=== PATIENT | female | born 1990 | race Caucasian/White ===

== ENCOUNTER 2017-05-11 12:26 | Observation (INO) ==
[2017-05-11 13:49] LABS: Amphetamine Screen,Urine Negative ng/mL (Cutoff=1000); Barbiturate Screen,Urine Negative ng/mL (Cutoff=200); Benzodiazepines Screen,Urine Negative ng/mL (Cutoff=200); Cannabinoid Screen,Urine Positive ng/mL (Cutoff = 50); Cocaine Screen,Urine Negative ng/mL (Cutoff= 300); Opiate Screen,Urine Negative ng/mL (Cutoff=300); Phencyclidine Screen,Urine Negative ng/mL (Cutoff=25)
[2017-05-11 13:51] LABS: Basophils % 0.4 %; Eosinophils # 0.1 K/mcL (0.0-0.6); Eosinophils % 0.7 %; Hematocrit 33.4 % (35.3-44.9); Hemoglobin 11.1 g/dL (11.5-15.4); Immature Granulocytes % 1.8 % (0-4); Lymphocytes # 1.6 K/mcL (0.6-4.6); Lymphocytes % 16.4 %; Mean Corpuscular HGB Conc 33.2 g/dL (31.6-35.5); Mean Corpuscular Hemoglobin 31.7 pg (28.0-33.3); Mean Corpuscular Volume 95.4 fL (83.0-100.0); Mean Platelet Volume 11.2 fL (9.4-12.4); Monocytes # 0.8 K/mcL (0.0-1.3); Neutrophils # 7.1 K/mcL (1.6-8.9); Platelet Count 135 K/mcL (140-400); Red Cell Distribution Width 13.3 % (11.5-14.5); Segmented Neutrophils % 72.7 %
[2017-05-11 14:01] LABS: Bilirubin,Urine Negative (Negative); Blood,Urine Negative (Negative); Clarity,Urine Cloudy (Clear); Color,Urine Yellow (Yellow); Glucose,Urine (UA) Normal (Normal); Ketones,Urine Negative (Negative); Leukocyte Esterase,Urine Large (Negative); Nitrite,Urine Negative (Negative); Protein,Urine Negative (Neg-Trace); Specific Gravity,Urine > 1.030 (1.010-1.025); Urobilinogen,Urine Normal (Normal)
[2017-05-11 14:05] LABS: Alanine Aminotransferase 10 Units/L (7-52); Aspartate Amino Transferase 16 Units/L (13-39); BUN/Creatinine Ratio 10 (6-26); Blood Urea Nitrogen 5 mg/dL (6-20); Lactate Dehydrogenase 112 Units/L (140-271); Uric Acid 4.4 mg/dL (2.3-7.6); eGFR For African Americans > 60 (> 60); eGFR For Non-African Americans > 60 (> 60)
[2017-05-11 14:11] LABS: Squamous Epithelial Cell,Urine Many per lpf (None-Few)
[2017-05-11 14:12] LABS: Bacteria,Urine Moderate per hpf (None-Few); WBC,Urine 15-30 per hpf (0-3)
[2017-05-11 14:41] LABS: Protein/Creatinine Ratio,Urine 0.19 mg/mg (0.00-0.20)
[2017-05-11] MEDS ORDERED: Acetaminophen/Butalbital/CaffeineTABLET PO PRN (15:07)
--- NOTE | 2017-05-11 15:12 | OB/GYN Progress Note ---
Date of Encounter: 05/11/17 Time of Encounter: 15:08 - Assessment and Plan (1) 35 weeks gestation of Current Visit: Yes Status: Acute (2) Headache Current Visit: Yes Status: Acute Will try Fioricet. Pt instructed to return to ED for further evaluation if headache does not improve. PIH labs and BP's WNL. Qualifiers: Headache type: unspecified Headache chronicity pattern: acute headache Intractability: intractable Qualified Code(s): R51 - Headache (3) Decreased movement Current Visit: Yes Status: Acute NST non-reactive. Discharge pt to OBGYN office for BPP. Qualifiers: Fetus number: single or unspecified fetus Trimester: third trimester Qualified Code(s): O36.8130 - Decreased movements, third trimester, not applicable or unspecified Subjective - Subjective Interval history: 27 year-old presenting at 35w4d with c/o headache x 5 days and decreased movement. She denies LOF or VB. She does report some blurry vision in her left eye with headache on that side behind her eye. She denies ever having a headache like this one. No hx migraines. No epigastric pain or edema. Antepartum ROS: no loss of fluid, no vaginal bleeding, no movement normal , no contractions Objective - Vital Signs Vital Signs: Intake and Output 05/10/17 05/11/17 05/11/17 23:59 07:59 15:59 Other: Weight 69.1 kg Patient Weight 05/11/17 23:59 Weight 69.1 kg - Exam FHR: category 1 FHR comments: NST non-reactive with periods of minimal variability Auscultation: bilateral: normal Abdomen: Present: soft, gravid. Absent: tenderness Uterus: Absent: tenderness Comments: Pupils equal and reactive. Strength equal bilateral upper and lower extremeties. reflexes normal no clonus - Labs Labs: Abnormal lab results RBC 3.50 M/mcL (3.82-4.97) L 05/11/17 13:20 Hgb 11.1 g/dL (11.5-15.4) L 05/11/17 13:20 Hct 33.4 % (35.3-44.9) L 05/11/17 13:20 Plt Count 135 K/mcL (140-400) L 03/05/18 13:20 BUN 5 mg/dL (6-20) L 05/11/17 13:20 Creatinine 0.48 mg/dL (0.60-1.20) L 05/11/17 13:20 Lactate Dehydrogenase 112 Units/L (140-271) L 05/11/17 13:20 Urine Clarity Cloudy (Clear) A 05/11/17 13:20 Ur Specific [place] > 1.030 (1.010-1.025) H 05/11/17 13:20 Ur Leukocyte Esterase Large (Negative) H 05/11/17 13:20 Urine Microscopic WBC 15-30 per hpf (0-3) H 05/11/17 13:20 Ur Squamous Epith Cells Many per lpf (None-Few) H 05/11/17 13:20 Urine Bacteria Moderate per hpf (None-Few) H 05/11/17 13:20 U Marijuana (THC) Screen Positive ng/mL (Cutoff = 50) H 05/11/17 13:20
== END 2017-05-11 15:34 | disposition home or self-care (01) ==
LOC: 1NENULAB
PROVIDERS: ADMIT Obstetrics & Gynecology; ATTEND Obstetrics & Gynecology

== ENCOUNTER 2017-06-04 10:19 | Inpatient (IN) ==
[2017-06-04] MEDS ORDERED: Famotidine 20 MG/2 ML VIAL IVP ONE (11:40)
[2017-06-04] MEDS ORDERED: CeFAZolin Premix DUPLEX 2,000 MG/50 ML BAG IVPB ONE (11:40)
[2017-06-04] MEDS ORDERED: Ringers Solution, Lactated 1,000 ML IVC ONE (11:40)
[2017-06-04] MEDS ORDERED: Metoclopramide 10 MG/2 ML VIAL IVP ONE (11:40)
[2017-06-04] MEDS ORDERED: Oxytocin 20 units/ LR 1000 mL 20 UNIT/1,000 ML BAG IVC ONE ×2 (11:40→19:49)
[2017-06-04] MEDS ORDERED: Ringers Solution, Lactated 1,000 ML IVC SCH ×2 (11:45→16:00)
[2017-06-04 12:03] LABS: Basophils % 0.3 %; Eosinophils # 0.1 K/mcL (0.0-0.6); Eosinophils % 0.8 %; Hemoglobin 12.5 g/dL (11.5-15.4); Immature Granulocytes % 1.5 % (0-4); Lymphocytes # 1.7 K/mcL (0.6-4.6); Lymphocytes % 16.6 %; Mean Corpuscular HGB Conc 33.8 g/dL (31.6-35.5); Mean Corpuscular Volume 94.6 fL (83.0-100.0); Mean Platelet Volume 10.9 fL (9.4-12.4); Monocytes # 0.8 K/mcL (0.0-1.3); Monocytes % 8.1 %; Neutrophils # 7.5 K/mcL (1.6-8.9); Platelet Count 162 K/mcL (140-400); Red Blood Count 3.91 M/mcL (3.82-4.97); Red Cell Distribution Width 13.6 % (11.5-14.5); Segmented Neutrophils % 72.7 %
[2017-06-04 12:42] LABS: Amphetamine Screen,Urine Negative ng/mL (Cutoff=1000); Barbiturate Screen,Urine Negative ng/mL (Cutoff=200); Benzodiazepines Screen,Urine Negative ng/mL (Cutoff=200); Cannabinoid Screen,Urine Negative ng/mL (Cutoff = 50); Cocaine Screen,Urine Negative ng/mL (Cutoff= 300); Opiate Screen,Urine Negative ng/mL (Cutoff=300); Phencyclidine Screen,Urine Negative ng/mL (Cutoff=25)
--- NOTE | 2017-06-04 13:01 | Anesthesia Evaluation PreOp ---
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 History: Seizures (last episode 1 year ago, not being medically treated, associated with flashing {strobe} lights) Other Medical History: Denies Any Significant HX Anesthesia History: No Prior Anesthetic Complications, Past Anesthesia : Yes (IUP 39 weeks, ) Alcohol Use: none Drug use: none Medications and Allergies Feosol 1 tab PO DAILY 05/11/17 [History] Vits #90/Iron Fum/FA [ Formula Tablet] 1 tab PO DAILY 05/11/17 [History] 3 Allergy/AdvReac Type Severity Reaction Status Date / Time No Known Allergies Allergy Verified 11/28/16 14:36 - Meds/Allergy Pre-op Review Medications Reviewed: Yes Allergies Reviewed: Yes Beta Blockers on Current Med List: No Anesthesia Results - Labs 06/04/17 11:43 Anesthesia Exam 3 FHT's 150's BP 127/86 Pulse 136 Resp 16 Temp 97.6 Height: 5'6''/1.68m Weight: 151 lbs/68.9 kg Pain Scale: 0 Pain Scale Used: Numeric (1 - 10) - HEENT Pupil (Motor): EOMI Mallampati: II Teeth: Normal (chipped molars) Oral Opening: Greater than 3 - BULL GANG WORKER LOC: Oriented BULL GANG WORKER Motor: Normal RUE, Normal LUE, Normal RLE, Normal LLE, Normal Face B[employer] GANG WORKER Sensory: Normal: RUE, LUE, RLE, LLE, Face - Cardiac Rhythm: Regular Murmur: None - Pulmonary Breath Sounds: bilateral Clear Respiratory Effort: Symmetrical Anesthesia Assess/Plan ASA Score: 2 Modified [place] Scale for Level of Consciousness: Cooperative, oriented, and tranquil Anesthetic Plan: General, Regional Monitoring Plan: Standard Monitors Recovery Plan: PACU
[2017-06-04] MEDS ORDERED: Acetaminophen IV 1,000 MG/100 ML INFUS..BTL IVPB ONE (13:41)
--- NOTE | 2017-06-04 13:52 | OB/GYN History & Physical ---
Date of Encounter: 06/04/17 Time of Encounter: 13:50 Assessment and Plan (1) History of delivery Current visit: Yes Status: Acute Consents signed, Anesthesia aware History of Present Illness HPI: Ms. Hoffman is a 27 year old female presents to the office for a scheduled C/S. She has a history of 2 prior c/sections and this was complicated with idiopathic polyhydramnios. Past Med Surg Social Fam HX - Past Medical History Medical history: seizures Psychiatric history: anxiety, depression - Past Surgical History Surgical History: , other - Social History Smoking Status: Never smoker Smokeless Tobacco Status: No Alcohol use: none Drug use: none - Family History Mother Living Status: Hx Family Cardiac Disorders: No Hx Family Respiratory Disorders: No Hx Family Cancer: No Hx Family GI Disorders: No Hx Family Genitourinary Disorders: No Hx Family Endocrine Disorder: No Hx Family Musculoskeletal Disorders: No Hx Family Neuromuscular Disorders: No Hx Family Neurologic Disorders: No Hx Family HEENT Disorders: No Hx Family Autoimmune Disorders: No Hx Family Reproductive Disorders: No Hx Family Psychosocial Disorders: No Hx Family Medical Disorders: No Obstetrical History - Pregnancies : 5 Para: 2 Medications and Allergies Feosol 1 tab PO DAILY 05/11/17 [History] Vits #90/Iron Fum/FA [ Formula Tablet] 1 tab PO DAILY 05/11/17 [History] 3 Allergy/AdvReac Type Severity Reaction Status Date / Time No Known Allergies Allergy Verified 11/28/16 14:36 Review of System OB All systems PM: reviewed and no additional remarkable complaints except as stated Exam - Constitutional Constitutional: no acute distress - HEENT HEENT: PERRL - Neck Neck exam: full ROM - Lungs Respiratory exam: CTAB - Cardiovascular Cardiovascular exam: RRR - Abdomen Abdomen: Present: gravid - Extremities Extremities exam: warm Results Result Diagrams: 06/04/17 11:43 All other labs normal. - VTE Reasons for not Prescribing Prophylaxis: Treatment not Indicated - Low risk for VTE
[2017-06-04] MEDS ORDERED: EPHEDrine 50 MG/ML VIAL ONE (14:44)
[2017-06-04] MEDS ORDERED: *HR* Oxytocin 10 UNIT/ML VIAL IM ONE (14:44)
[2017-06-04] MEDS ORDERED: Water for inj. (sterile) 10 ML IV ONE (14:44)
[2017-06-04] MEDS ORDERED: Ondansetron 4 MG/2 ML VIAL ONE (14:44)
[2017-06-04] MEDS ORDERED: Lidocaine -MPF 1% 5 ML AMPUL ONE (14:44)
[2017-06-04] MEDS ORDERED: Ringers Solution, Lactated 1,000 ML ONE (15:50)
[2017-06-04] MEDS ORDERED: *HR* OxyCODONE Immed Rel 5 MG TABLET PO PRN (15:57)
[2017-06-04] MEDS ORDERED: *HR* Meperidine 25 MG/ML SYRINGE IVP PRN (15:57)
[2017-06-04] MEDS ORDERED: *HR* Promethazine 25 MG/ML VIAL IVP PRN (15:57)
[2017-06-04] MEDS ORDERED: *HR* HYDROmorphone 2 MG TABLET PO PRN (15:57)
[2017-06-04] MEDS ORDERED: Ondansetron 4 MG/2 ML VIAL IVP ONE (15:57)
[2017-06-04] MEDS ORDERED: Naloxone 0.4 MG/ML INJ IVP PRN (15:57)
[2017-06-04] MEDS ORDERED: Albuterol 2.5 MG/3 ML NEBULIZER IH ONE (15:57)
--- NOTE | 2017-06-04 15:57 | Anesthesia Procedures ---
Date of Encounter: 06/04/17 Time of Encounter: 15:48 Procedures: Anesthesia - Epidural/Spinal Patient ID/Chart reviewed: Yes Patient examined: Yes OB Eval: Gestational age: term OB Eval: : 5 OB Eval: Hx Para: 2 OB Eval: Contractions: Non-stressed pattern Consent Obtained: Yes Supplemental Oxygen: Nasal Cannula Supplemental Oxygen Rate (L/min): 2 Site Prep: Aseptic Technique, Sterile prep and drape, Povidone-Iodine 1% Patient position: upright Local Anesthetic: Lidocaine 1% Amount of Local Anesthetic used: 3 Interspace Used: L3-L4 Blood: No CSF: Yes Paresthesia: No Spinal Dose: 2ml 0.5%bupiv 10mcg fent 0.3mg duramorph Procedure: pt tolerated procedure well. no complications. vss. fhr stable. see anes record for full vitals.
--- NOTE | 2017-06-04 17:23 | OB/GYN Procedure Note ---
Section - Date of procedure: 06/04/17 Preop diagnosis: desires repeat , other (polyhydramnios) Post-op diagnosis: same Procedure: repeat low transverse Surgeon: Stefany Grover Estimated blood loss (cc): 600 Was there an conventions assistant present: Yes Manager Of Compliance: oJsy Linn Anesthesia Type: Spinal section complications: none Disposition: L&D Recovery Room Specimens: Cord blood - Narrative Narrative: Patient was brought to the operating room and was given spinal anesthesia. The abdomen was prepped and draped in a sterile fashion. A Pfannenstiel incision was made and carried sharply down to the level of fascia. The fascia was incised transversely. The fascia was dissected away from the underlying rectus muscles. With sharp and blunt dissection, the rectus muscles were divided in midline. The peritoneum was entered bluntly. The incision was carried vertically with scissors. A transverse incision was made across the bladder peritoneum. The bladder was dissected away from the underlying lower uterine segment. Bladder retractor was placed to protect the bladder. The lower uterine segment was entered sharply with a scalpel. The incision was manually extended. The amniotic sac was ruptured and clear amniotic fluid was encountered. The infant's head was pulled up and delivered easily as were the shoulders and body. The mouth and oropharynx were suctioned. The cord was clamped and cut. The was passed off to the waiting nurse in satisfactory condition. APGARS 9/9. Placenta was extracted completely and found to be intact. Uterus was explored and found to be empty. Uterus was delivered through the abdominal incision and massaged vigorously. Intravenous Pitocin was administered. Clamps were placed about the margins of the uterine incision, which was closed primarily with a running locking stitch of 0 Vicryl with adequate hemostasis. The uterus was returned to its proper anatomic position in the abdomen. The fascia was closed with a simple running stitch of 0 vicryl. The skin was closed with running subcuticular of 4-0 vicryl. Patient was brought to the recovery room in satisfactory condition. There were no complications. There was 600 cc of blood loss. All sponge, needle, and instrument counts were reported to be correct.
[2017-06-04] MEDS ORDERED: Sennosides 8.6 MG TABLET PO PRN (19:52)
[2017-06-04] MEDS ORDERED: Ondansetron 4 MG/2 ML VIAL IVP PRN (19:52)
[2017-06-04] MEDS ORDERED: Metoclopramide 10 MG/2 ML VIAL IVP PRN (19:52)
[2017-06-04] MEDS: Oxytocin 20 units/ LR 1000 mL 20 UNIT/1,000 ML BAG IVC SCH (20:21)
[2017-06-04] MEDS ORDERED: *HR* Nalbuphine 20 MG/ML AMPUL IVP ONE (20:28)
--- NOTE | 2017-06-04 23:07 | Anesthesia Evaluation Post Op ---
Date of Encounter: 06/04/17 Time of Encounter: 23:07 - Lungs Lungs: Clear Ascult./Percussion - Airway Airway: Non-obstructed - Cardiovascular Regular Rate, Baseline Rhythm - Mental Status Mental Status: Alert & Oriented, Answers Appropriately - Pain Pain Scale: 3 Pain Scale used: Numeric (1 - 10) - Nausea Vomiting Nausea Vomiting: Not Present - Hydration Hydration: Tolerates oral liquids, Gonzalez catheter - Discharge PostOp Status: Transfer Patient to floor
[2017-06-05] MEDS: Simethicone 80 MG TAB.CHEW PO PRN ×3 (03:28→16:26)
[2017-06-05] MEDS: *HR* OxyCODONE/APAP 5/325 TABLET PO PRN ×3 (03:28→23:08)
[2017-06-05] MEDS: Oxytocin 20 units/ LR 1000 mL 20 UNIT/1,000 ML BAG IVC SCH (03:29)
[2017-06-05 04:50] LABS: Basophils % 0.4 %; Eosinophils # 0.1 K/mcL (0.0-0.6); Eosinophils % 0.4 %; Hematocrit 28.5 % (35.3-44.9); Immature Granulocytes % 0.9 % (0-4); Lymphocytes # 1.8 K/mcL (0.6-4.6); Lymphocytes % 16.2 %; Mean Corpuscular Hemoglobin 31.4 pg (28.0-33.3); Mean Corpuscular Volume 95.3 fL (83.0-100.0); Mean Platelet Volume 10.9 fL (9.4-12.4); Monocytes # 1.1 K/mcL (0.0-1.3); Monocytes % 9.7 %; Neutrophils # 8.3 K/mcL (1.6-8.9); Platelet Count 134 K/mcL (140-400); Red Blood Count 2.99 M/mcL (3.82-4.97); Red Cell Distribution Width 13.6 % (11.5-14.5); Segmented Neutrophils % 72.4 %
[2017-06-05 04:53] LABS: Hemoglobin 9.4 g/dL (11.5-15.4)
[2017-06-05] MEDS: Prenatal Vit/FA 1 EACH TABLET PO SCH (08:29)
[2017-06-05] MEDS: Ibuprofen 600 MG TABLET PO PRN (14:23)
--- NOTE | 2017-06-05 16:19 | OB/GYN Progress Note ---
Date of Encounter: 06/05/17 Time of Encounter: 16:14 - Assessment and Plan (1) Status post section Current Visit: Yes Status: Acute Postoperative day #1 Continue routine care consult when necessary Anticipate discharge home tomorrow (2) anemia Current Visit: Yes Status: Acute (3) Breast feeding status of mother Current Visit: Yes Status: Acute Subjective - Subjective Principal diagnosis: s/p RLTCS Interval history: Feeling well. OOB without dizziness. Cramping minimal - using PO meds appropriately. every 2-3 hours. Some nipple soreness. Voiding without difficulty. Passing flatus, no BM yet. Tolerating regular diet. Patient reports: appetite normal, voiding normally, pain well controlled, ambulating normally Dorsey: doing well, nursing well Objective - Vital Signs Latest vital signs: Vital Signs Temp Pulse Resp BP Pulse Ox 06/05/17 11:40 98.4 F 97 16 105/73 97 06/05/17 08:18 98.1 F 86 16 104/70 98 06/05/17 03:51 98.9 F 87 14 105/68 98 06/04/17 23:21 98.5 F 109 16 102/68 97 06/04/17 21:38 98.7 F 101 16 107/73 98 06/04/17 20:43 98.4 F 102 16 109/73 97 06/04/17 20:15 99.2 F 100 18 103/68 99 06/04/17 19:35 98.4 F 106 16 106/73 97 Intake and Output 06/05/17 06/05/17 06/05/17 07:59 15:59 23:59 Intake Total 2200 / 2200 1360 / 1360 Output Total 550 / 550 350 / 350 Balance 1650 / 1650 1010 / 1010 Intake: IV Fluids 1000 / 1000 1000 / 1000 Pitocin 20 unit In 1,000 ml @ 1000 / 1000 1000 / 1000 125 mls/hr IVC .Q8H XENA Rx#: [id number] Oral 1200 / 1200 360 / 360 Output: Urine 350 / 350 Catheter 550 / 550 Other: Meal Lunch Percent of Meal Consumed 70% Stool Characteristics Normal for Patient Weight 63.095 kg Patient Weight 06/05/17 23:59 Weight 63.095 kg - Exam Lungs: bilateral: normal Chest: Normal S1, Normal S2 Extremities: Present: normal. Absent: tenderness, edema Abdomen: Present: normal appearance, soft Incision: Present: normal, intact, dressed Uterus: Present: normal, firm Fundal Height: 0 (at umbilicus) Comments: Breasts: nipples intact without erythema, breasts soft, non-tender. - Labs Labs: Laboratory Results - last 24 hr 06/05/17 04:31 WBC 11.4 H RBC 2.99 L Hgb 9.4 L D Hct 28.5 L MCV 95.3 MCH 31.4 MCHC 33.0 RDW 13.6 Plt Count 134 L MPV 10.9 Immature Gran % 0.9 Seg Neutrophils % 72.4 Lymphocytes % 16.2 Monocytes % 9.7 Eosinophils % 0.4 Basophils % 0.4 Neutrophils # 8.3 Lymphocytes # 1.8 Monocytes # 1.1 Eosinophils # 0.1 Basophils # 0.0
[2017-06-05] MEDS ORDERED: Acetaminophen 325 MG TABLET PO PRN (21:04)
[2017-06-06] MEDS: Simethicone 80 MG TAB.CHEW PO PRN (03:09)
[2017-06-06] MEDS: Ibuprofen 600 MG TABLET PO PRN ×2 (06:25→15:37)
[2017-06-06] MEDS: *HR* OxyCODONE/APAP 5/325 TABLET PO PRN ×2 (06:25→15:36)
[2017-06-06 08:11] VITALS: BP 116/79
[2017-06-06] MEDS: Prenatal Vit/FA 1 EACH TABLET PO SCH (08:42)
--- NOTE | 2017-06-06 09:56 | Discharge Summary ---
Date of Encounter: 06/06/17 Time of Encounter: 09:45 - Discharge Diagnosis (1) Status post section Priority: Primary Status: Acute Comments: S/P Repeat by Dr. Grover Day #2 Pain well controlled Lochia light and without clots Voiding without difficulty Tolerating regular diet, bowel sounds present, passing flatus VSS without difficulty Anticipate discharge home today (2) anemia Priority: Secondary Status: Acute (3) Breast feeding status of mother Priority: Secondary Status: Acute - Discharge Medications Prescriptions: Ibuprofen [Motrin] 600 mg PO Q6HR PRN #30 tablet PRN Reason: Cramping OxyCODONE/APAP 5/325 [Percocet 5/325 MG] 1 each PO Q8HR PRN 5 Days #15 tablet PRN Reason: Moderate pain 4-6 Breast Pump [BREAST PUMP] 1 each .ROUTE AD #1 each Docusate [Colace] 100 mg PO BID #30 capsule Ferrous Sulfate 325 mg PO DAILY #30 tablet Home Medications: Feosol 1 tab PO DAILY 05/11/17 [History] Vits #90/Iron Fum/FA [ Formula Tablet] 1 tab PO DAILY 05/11/17 [History] Breast Pump [BREAST PUMP] 1 each .ROUTE AD #1 each 06/05/17 [Rx] Docusate [Colace] 100 mg PO BID #30 capsule 06/06/17 [Rx] Ferrous Sulfate 325 mg PO DAILY #30 tablet 06/06/17 [Rx] Ibuprofen [Motrin] 600 mg PO Q6HR PRN #30 tablet 06/06/17 [Rx] OxyCODONE/APAP 5/325 [Percocet 5/325 MG] 1 each PO Q8HR PRN 5 Days #15 tablet [Rx] Allergies/Adverse Reactions: 3 Allergy/AdvReac Type Severity Reaction Status Date / Time No Known Allergies Allergy Verified 11/28/16 14:36 Data Procedures and tests throughout hospitalization: Laboratory Tests 06/04/17 06/04/17 06/05/17 11:43 11:43 04:31 WBC 10.3 11.4 H RBC 3.91 2.99 L Hgb 12.5 9.4 L D Hct 37.0 28.5 L MCV 94.6 95.3 MCH 32.0 31.4 MCHC 33.8 33.0 RDW 13.6 13.6 Plt Count 162 134 L MPV 10.9 10.9 Immature Gran % 1.5 0.9 Seg Neutrophils % 72.7 72.4 Lymphocytes % 16.6 16.2 Monocytes % 8.1 9.7 Eosinophils % 0.8 0.4 Basophils % 0.3 0.4 Neutrophils # 7.5 8.3 Lymphocytes # 1.7 1.8 Monocytes # 0.8 1.1 Eosinophils # 0.1 0.1 Basophils # 0.0 0.0 Urine Opiates Screen Negative Ur Barbiturates Screen Negative Ur Phencyclidine Scrn Negative Ur Amphetamines Screen Negative U Benzodiazepines Scrn Negative Urine Cocaine Screen Negative U Marijuana (THC) Screen Negative Date of admission: 06/04/17 10:19 Primary care physician: Jason Longo CNP Discharging clinician: Tay Torres Anticipated date of discharge: 06/06/17 - Patient Status Disposition: Home, Self-Care Functional capacity at discharge: independent ambulation Overall status at discharge: patient is not back to baseline - Discharge Instructions Follow Up With: Jason Longo CNP [Primary Care Provider] - - Diet and Activity Activity: increase activity as tolerated, return to work once cleared by your PCP/specialist Diet: advance to your usual diet Hospital Course Reason for admission: section Delivery: section Episiotomy: none Laceration: none Other procedures: none complications: none Discharge diagnosis: IUP at term delivered [place] baby: male Hospital course: Section - Date of procedure: 06/04/17 Preop diagnosis: desires repeat , other (polyhydramnios) Post-op diagnosis: same Procedure: repeat low transverse Surgeon: Stefany Grover Estimated blood loss (cc): 600 Was there an material assistant present: Yes Salesperson Flying Squad: Josy Linn Anesthesia Type: Spinal section complications: none Disposition: L&D Recovery Room Specimens: Cord blood - Narrative Narrative: Patient was brought to the operating room and was given spinal anesthesia. The abdomen was prepped and draped in a sterile fashion. A Pfannenstiel incision was made and carried sharply down to the level of fascia. The fascia was incised transversely. The fascia was dissected away from the underlying rectus muscles. With sharp and blunt dissection, the rectus muscles were divided in midline. The peritoneum was entered bluntly. The incision was carried vertically with scissors. A transverse incision was made across the bladder peritoneum. The bladder was dissected away from the underlying lower uterine segment. Bladder retractor was placed to protect the bladder. The lower uterine segment was entered sharply with a scalpel. The incision was manually extended. The amniotic sac was ruptured and clear amniotic fluid was encountered. The infant's head was pulled up and delivered easily as were the shoulders and body. The mouth and oropharynx were suctioned. The cord was clamped and cut. The was passed off to the waiting nurse in satisfactory condition. APGARS 9/9. Placenta was extracted completely and found to be intact. Uterus was explored and found to be empty. Uterus was delivered through the abdominal incision and massaged vigorously. Intravenous Pitocin was administered. Clamps were placed about the margins of the uterine incision, which was closed primarily with a running locking stitch of 0 Vicryl with adequate hemostasis. The uterus was returned to its proper anatomic position in the abdomen. The fascia was closed with a simple running stitch of 0 vicryl. The skin was closed with running subcuticular of 4-0 vicryl. Patient was brought to the recovery room in satisfactory condition. There were no complications. There was 600 cc of blood loss. All sponge, needle, and instrument counts were reported to be correct. Time Attestation: Total time spent providing and/or coordinating discharge services: Time Spent: Greater than 30 minutes - VTE Reasons for not Prescribing Prophylaxis: Treatment not Indicated - Low risk for VTE Documentation of Mechanical Device: Intermittent pneumatic compression device - Attending Attestation I examined this patient and my medical decision-making was reviewed with the Resident Physician. I agree with the documented findings, disposition and treatment plan as described. Jennifer Castillo CNM Exam - Constitutional Vitals: Temp Pulse Resp BP Pulse Ox 98.3 F 88 16 116/79 99 06/06/17 08:10 06/06/17 08:10 06/06/17 08:22 06/06/17 08:10 06/06/17 08:10 General appearance IM: A&O X 3 - Respiratory Respiratory exam: Present: CTAB - Cardiovascular Cardiovascular exam IM: Present: RRR, +S1, +S2 - GI/Abdominal GI/Abdominal exam IM: hypoactive bowel sounds, no peritoneal signs Incision: normal, dry, intact - Uterus Position: 1 Finger Below Umbilicus - Extremities Exam Extremities exam IM: Present: full ROM, normal inspection, radial pulses palpable and symmetrical - Neurological Exam Neurological exam: alert, oriented X3 - Psychiatric Additional comments: Patient is in good mood.
[2017-06-06] MEDS ORDERED: Lanolin 7 G OINT...G. TP PRN (12:55)
== END 2017-06-06 15:35 | disposition home or self-care (01) | DRG 540 ==
LOC: 1NENULAB 10:19 → 1NENUOBS 20:09
PROVIDERS: ADMIT Student in an Organized Health Care Education/Training Program; ATTEND Student in an Organized Health Care Education/Training Program